=== PATIENT | male | born 1990 | race Caucasian/White ===

== ENCOUNTER 2017-11-16 12:19 | Emergency (ER) | payer OTHER ==
[~2017-11-16] VITALS: Ht 182.9 cm; Wt 149.5 kg
[~2017-11-16 12:19] MED LIST: Augmentin PO; Vicodin,Norco 5/325 PO; ZYRTEC10 M3 PO
[2017-11-16 13:19] LABS: HEMATOCRIT 42.1 % (38.0-50.0); HEMOGLOBIN 14.4 G/DL (12.5-16.6); MCH 28.9 PG (29.0-34.0); MCHC 34.2 G/DL (30.0-36.0); MCV 84.5 FL (86-99); PLATELET COUNT 344 K/uL (156-360); RBC DIS.WIDTH-CV 12.2 % (11.8-14.6); RBC DIS.WIDTH-SD 37.1 % (39-53); RED BLOOD COUNT 4.98 M/uL (4.00-5.50); WHITE BLOOD COUNT 16.9 K/uL (4.1-10.2)
[2017-11-16 13:23] LABS: APPEARANCE CLEAR ((CLEAR)); BILIRUBIN NEGATIVE; BLOOD NEGATIVE; COLOR YELLOW ((YELLOW)); GLUCOSE (STRIP) NEGATIVE; KETONES NEGATIVE; LEUKOCYTES NEGATIVE; NITRITE NEGATIVE; PROTEIN (STRIP) 30; SPECIFIC GRAVITY 1.027 (1.000-1.030); UCUL ADDED? NO
[2017-11-16 13:30] LABS: ALBUMIN 4.3 g/dL (3.2-4.8); CHLORIDE 102 mEq/L (99-109); POTASSIUM 4.1 mEq/L (3.7-5.4); SODIUM 138 mEq/L (136-147)
[2017-11-16 13:32] LABS: GLUCOSE 103 mg/dL (70-99)
[2017-11-16 13:33] LABS: TOTAL PROTEIN 8.4 g/dL (6.4-8.3)
[2017-11-16 13:34] LABS: TOTAL BILIRUBIN 0.8 mg/dL (0.0-1.0)
[2017-11-16 13:36] LABS: ALKALINE PHOSPHATASE 94 IU/L (3-129); CREATININE 0.7 mg/dL (0.6-1.3); GFR ESTIMATE (CALCULATED) > 59 mL/min/ (58.99-99999)
[2017-11-16 13:37] LABS: UREA NITROGEN (BUN) 7 mg/dL (9-23)
[2017-11-16 13:38] LABS: AST (GOT) 16 IU/L (2-34)
[2017-11-16 13:39] LABS: ALT (GPT) 37 IU/L (3-49)
[2017-11-16] MEDS ORDERED: ULTRAM50 MG PO (18:12)
[2017-11-16] MEDS ORDERED: CIPRO500 MG PO (18:12)
[2017-11-16] MEDS ORDERED: FLAGYL500 MG PO (18:12)
[2017-11-16 18:32] VITALS: BP 139/94
== END 2017-11-16 18:38 | disposition home or self-care (01) ==
LOC: EME 12:19
DX: K51.90 Ulcerative colitis, unspecified, without complications (principal); N50.82 Scrotal pain
CPT/HCPCS: 74018; 74177; 76870; 80053; 81003; 85027; 93975; 99281; 99285